=== PATIENT | female | born 1950 | race Caucasian/White ===

== ENCOUNTER 2019-06-17 19:00 | Emergency (ER) | payer OTHER, MEDICARE, BC ==
[~2019-06-17] VITALS: Ht 162.6 cm; Wt 70.3 kg
[2019-06-17] MEDS ORDERED: DESV50TA PO (19:23)
--- NOTE | 2019-06-17 20:49 | NUR ---
Patient discharged to home in stable conditon. Written and verbal after care instructions given. Patient verbalizes understanding of instructions. AMBULATORY W/ STABLE GAIT ALL BELONGINGS W/ PT
[2019-06-17 20:51] VITALS: BP 130/77
== END 2019-06-17 20:51 | disposition home or self-care (01) ==
LOC: ER 19:04
DX: S00.03XA Contusion of scalp, initial encounter (principal); R51 Headache; M25.512 Pain in left shoulder; M54.2 Cervicalgia; M25.561 Pain in right knee; F32.9 Major depressive disorder, single episode, unspecified; Z79.899 Other long term (current) drug therapy; V43.51XA Car driver injured in collision with sport utility vehicle in traffic accident, initial encounter; Y93.89 Activity, other specified; Y92.89 Other specified places as the place of occurrence of the external cause; Y99.8 Other external cause status
CPT/HCPCS: 70450; 72125; 73030; A4663